=== PATIENT | male | born 1990 | race African-American/Black ===

== ENCOUNTER 2018-03-08 11:55 | Emergency (ER) | payer OTHER ==
[2018-03-08 14:20] LABS: Absolute Lymphocytes (CBC) 2.2 K/uL (0.7-4.9); Absolute Monocytes 0.4 K/uL (0.1-1.3); Absolute Neutrophil 4.9 K/uL (1.8-8.0); Basophils % 0.3 % (0-1.3); Eosinophils % 1.5 % (0-4.4); Hematocrit 48.3 % (39.6-49.0); Lymphocytes % 28.8 % (15.3-44.8); MCH 27.8 pg (27.0-35.0); MCV 85.1 fL (80-100); MPV 9.1 fL (7.6-11.3); RBC Red Blood Cell Count 5.67 M/uL (4.33-5.43)
[2018-03-08 14:32] LABS: Bicarbonate 26 mEq/L (21-31); Glucose Level 83 mg/dL (65-120); Potassium 4.5 mEq/L (3.6-5.0); Sodium Level 139 mEq/L (135-145)
[2018-03-08 14:33] LABS: BUN Blood Urea Nitrogen 14 mg/dL (6-20)
--- NOTE | 2018-03-08 14:58 | RAD REPORT ---
EXAM DESCRIPTION: RAD - Chest Single View - 03/08/2018 2:48 pm CLINICAL HISTORY: Chest pain, hypertension. COMPARISON: None. FINDINGS: Portable technique limits examination quality. The lungs are grossly clear. The heart is normal in size. No displaced fractures. IMPRESSION: No acute intrathoracic process suspected.
--- NOTE | 2018-03-08 15:47 | ER ---
Nurse's Notes [facility] Emergency Department Name: Reinier Flores Age: 27 yrs Sex: Male : 1990 Arrival Date: 03/08/2018 Time: 11:58 Bed 19 Private MD: Diagnosis: Chest pain, unspecified;Encounter for issue of repeat prescription Presentation: 03/08 12:31 Presenting complaint: Patient states: Needs lisinopril refill, does not remember the hb dose. Denies pain/SOB/nausea. Transition of care: patient was not received from another setting of care. Onset of symptoms was March 08, 2018. Care prior to arrival: None. 12:31 Method Of Arrival: Ambulatory hb 12:31 Acuity: LEYLA 5 hb Triage Assessment: 13:18 General: Appears in no apparent distress. uncomfortable, Behavior is calm, cooperative, hj appropriate for age. Pain: Denies pain. Cardiovascular: Capillary refill < 3 seconds Patient's skin is warm and dry. Historical: - Allergies: 12:33 No Known Allergies; hb - Home Meds: 12:33 Lisinopril Oral [Active]; hb - PMHx: 12:33 Hypertension; hb - PSHx: 12:33 None; hb - Immunization history:: Adult Immunizations up to date. - Social history:: Smoking status: Patient/guardian denies using tobacco. Screenin:18 Abuse screen: Denies threats or abuse. Denies injuries from another. Nutritional hj screening: No deficits noted. Tuberculosis screening: No symptoms or risk factors identified. Fall Risk None identified. Assessment: 13:01 Reassessment: Pt told ED registration staff that he was going to drink a redbull energy ss drink to make himself pass out to come back to the ER exam room faster. 13:19 Pain: Denies pain. Pain began. hj 13:20 General: Appears in no apparent distress. uncomfortable, Behavior is calm, cooperative, hj appropriate for age. Pain: Denies pain. Neuro: Level of Consciousness is awake, alert, obeys commands, Oriented to person, place, time, situation, Appropriate for age. Cardiovascular: Capillary refill < 3 seconds Patient's skin is warm and dry. Respiratory: Airway is patent Respiratory effort is even, unlabored, Respiratory pattern is regular, symmetrical. GI: No signs and/or symptoms were reported involving the gastrointestinal system. : No signs and/or symptoms were reported regarding the genitourinary system. EENT: No signs and/or symptoms were reported regarding the EENT system. Derm: No signs and/or symptoms reported regarding the dermatologic system. Musculoskeletal: No signs and/or symptoms reported regarding the musculoskeletal system. 13:21 Pain: Pain does not radiate. hj 13:30 Reassessment: now pt complained of chest pain; provider in room with orders for cardiac hj work up;. 13:45 Reassessment: Patient and/or family updated on plan of care and expected duration. Pain hj level reassessed. Patient is alert, oriented x 3, equal unlabored respirations, skin warm/dry/pink. pt aggreed of work up;. 14:14 Reassessment: complaints of 4/10 chest pain;. hj Vital Signs: 12:34 BP 152 / 95; Pulse 88; Resp 16; Temp 97.8; Pulse Ox 100% on R/A; Weight 90.72 kg; hb Height 5 ft. 8 in. (172.72 cm); Pain 0/10; 13:21 BP 145 / 97; Pulse 84; Resp 18; Pulse Ox 98% on R/A; hj 16:20 BP 140 / 96; Pulse 85; Resp 18; Pulse Ox 100% on R/A; hj 12:34 Body Mass Index 30.41 (90.72 kg, 172.72 cm) hb ED Course: 11:58 Patient arrived in ED. sb2 12:33 Triage completed. hb 12:33 Arm band placed on right wrist. hb 13:17 Foreign Campbell RN is Primary Nurse. hj 13:17 Justino Hill NP is PHCP. pm1 13:17 Gil Watson MD is Attending Physician. pm1 13:19 Patient has correct armband on for positive identification. Bed in low position. Call hj light in reach. Side rails up X 1. professor of economics on. Pulse ox on. NIBP on. 13:19 Patient maintains SpO2 saturation greater than 95% on room air. hj 14:14 Initial lab(s) drawn, by me, sent to lab. Inserted saline lock: 20 gauge antecubital hj area, using aseptic technique. Blood collected. 14:27 EKG done, by ED staff, reviewed by Justino Marinas DIFFUSION FURNACE OPERATOR. jb1 14:48 XRAY Chest (1 view) In Process Unspecified. EDMS 16:20 No provider procedures requiring assistance completed. IV discontinued, intact, hj bleeding controlled, No redness/swelling at site. Pressure dressing applied. Administered Medications: No medications were administered Outcome: 15:47 Discharge ordered by MD. pm1 16:20 Discharged to home ambulatory. hj 16:20 Condition: stable 16:20 Discharge instructions given to patient, Instructed on discharge instructions, follow up and referral plans. medication usage, Demonstrated understanding of instructions, follow-up care, medications, Prescriptions given X 1. 16:21 Patient left the ED. Signatures: Dispatcher [employer] EDMS Laureano Flores jb1 Melany Brandt, MONTEZ RN Foreign Campbell RN Justino Acevedo NP DIFFUSION FURNACE OPERATOR pm1 Jennifer Ireland RN RN Bren Garcia sb2 Corrections: (The following items were deleted from the chart) 12:59 12:31 Acuity: LEYLA 4 hb hb 13:31 13:21 Pulse 84bpm; Resp 18bpm; Pulse Ox 98% RA; con andujar
--- NOTE | 2018-03-08 15:47 | EDPHYS ---
Physician Documentation [facility] Name: Reinier Flores Age: 27 yrs Sex: Male : 1990 Arrival Date: 03/08/2018 Time: 11:58 Bed 19 Private MD: ED Physician Gil Watson HPI: 03/08 14:32 This 27 yrs old Black Male presents to ER via Ambulatory with complaints of chest pain pm1 and medication refill. 14:32 The patient or guardian reports chest pain that is located primarily in the substernal pm1 area. The pain does not radiate. Associated signs and symptoms: Pertinent positives: shortness of breath, Pertinent negatives: abdominal pain, cough, dizziness, headache, nausea, vomiting. The chest pain is described as sharp. Duration: The patient or guardian reports multiple episodes. Modifying factors:. The patient has experienced similar episodes in the past, multiple times. The patient has not recently seen a physician, out of town. Patient from [place] and presenting to the ER for refill of his blood pressure medications. Patient does not take his blood pressure medications daily as directed. He takes his blood pressure medications PRN chest pain. When he has this substernal chest pain, he takes lisinopril, smokes a cigarette and then his chest pain resolves for the day. Patient does not know the dosage of lisinopril that he is prescribed. Historical: - Allergies: 12:33 No Known Allergies; hb - Home Meds: 12:33 Lisinopril Oral [Active]; hb - PMHx: 12:33 Hypertension; hb - PSHx: 12:33 None; hb - Immunization history:: Adult Immunizations up to date. - Social history:: Smoking status: Patient/guardian denies using tobacco. ROS: 14:36 Constitutional: Negative for fever, chills, and weight loss, Eyes: Negative for injury, pm1 pain, redness, and discharge, ENT: Negative for injury, pain, and discharge, Neck: Negative for injury, pain, and swelling. 14:36 Back: Negative for injury and pain, MS/Extremity: Negative for injury and deformity, Skin: Negative for injury, rash, and discoloration, Neuro: Negative for headache, weakness, numbness, tingling, and seizure. 14:36 Cardiovascular: Positive for chest pain, Negative for edema, orthopnea, palpitations, paroxysmal nocturnal dyspnea. 14:36 Respiratory: Positive for shortness of breath, Negative for cough, sputum production, wheezing. Exam: 14:40 Constitutional: This is a well developed, well nourished patient who is awake, alert, pm1 and in no acute distress. Head/Face: Normocephalic, atraumatic. Eyes: Pupils equal round and reactive to light, extra-ocular motions intact. Lids and lashes normal. Conjunctiva and sclera are non-icteric and not injected. Cornea within normal limits. Periorbital areas with no swelling, redness, or edema. ENT: Nares patent. No nasal discharge, no septal abnormalities noted. Tympanic membranes are normal and external auditory canals are clear. Oropharynx with no redness, swelling, or masses, exudates, or evidence of obstruction, uvula midline. Mucous membranes moist. Neck: Trachea midline, no thyromegaly or masses palpated, and no cervical lymphadenopathy. Supple, full range of motion without nuchal rigidity, or vertebral point tenderness. No Meningismus. 14:40 Cardiovascular: Regular rate and rhythm with a normal S1 and S2. No gallops, murmurs, or rubs. Normal PMI, no JVD. No pulse deficits. Respiratory: Lungs have equal breath sounds bilaterally, clear to auscultation and percussion. No rales, rhonchi or wheezes noted. No increased work of breathing, no retractions or nasal flaring. Abdomen/GI: Soft, non-tender, with normal bowel sounds. No distension or tympany. No guarding or rebound. No evidence of tenderness throughout. Back: No spinal tenderness. No costovertebral tenderness. Full range of motion. Skin: Warm, dry with normal turgor. Normal color with no rashes, no lesions, and no evidence of cellulitis. MS/ Extremity: Pulses equal, no cyanosis. Neurovascular intact. Full, normal range of motion. 14:40 Chest/axilla: Inspection: normal, Palpation: tenderness, of the mid-sternal area, that totally reproduces the patient's complaints. 14:40 Neuro: Orientation: is normal, Motor: is normal, moves all fours, Sensation: is normal, no obvious gross deficits, Gait: is steady, at a normal pace, without difficulty. Vital Signs: 12:34 BP 152 / 95; Pulse 88; Resp 16; Temp 97.8; Pulse Ox 100% on R/A; Weight 90.72 kg; hb Height 5 ft. 8 in. (172.72 cm); Pain 0/10; 13:21 BP 145 / 97; Pulse 84; Resp 18; Pulse Ox 98% on R/A; hj 16:20 BP 140 / 96; Pulse 85; Resp 18; Pulse Ox 100% on R/A; hj 12:34 Body Mass Index 30.41 (90.72 kg, 172.72 cm) hb MDM: 13:17 Patient medically screened. pm1 15:35 Data reviewed: vital signs. Data interpreted: Pulse oximetry: on room air is 98 %. pm1 Interpretation: normal. 15:46 Counseling: I had a detailed discussion with the patient and/or guardian regarding: the pm1 historical points, exam findings, and any diagnostic results supporting the discharge/admit diagnosis, lab results, radiology results, the need for outpatient follow up, to return to the emergency department if symptoms worsen or persist or if there are any questions or concerns that arise at home. 03/08 13:56 Order name: Basic Metabolic Panel; Complete Time: 14:48 pm1 03/08 13:56 Order name: CBC with Diff; Complete Time: 14:48 pm03/08 13:56 Order name: Troponin (emerg Dept Use Only); Complete Time: 14:48 pm03/08 13:56 Order name: XRAY Chest (1 view); Complete Time: 15:18 pm03/08 13:56 Order name: EKG; Complete Time: 13:57 pm03/08 13:56 Order name: Cardiac monitoring; Complete Time: 13:58 pm03/08 13:56 Order name: EKG - Nurse/Tech; Complete Time: 14:28 pm03/08 13:56 Order name: IV Saline Lock; Complete Time: 14:10 pm03/08 13:56 Order name: Labs collected and sent; Complete Time: 14:11 pm03/08 13:56 Order name: O2 Per Protocol; Complete Time: 13:58 pm03/08 13:56 Order name: O2 Sat Monitoring; Complete Time: 13:58 pm03/08 13:56 Order name: Urine Dipstick-Ancillary (obtain specimen); Complete Time: 15:14 pm1 Administered Medications: No medications were administered Disposition: 18:40 Co-signature as Attending Physician, Gil Watson MD. rn Disposition: 03/08/18 15:47 Discharged to Home. Impression: Chest pain, unspecified, Encounter for issue of repeat prescription. - Condition is Stable. - Discharge Instructions: Nonspecific Chest Pain, Medicine Refill at the Emergency Department. - Prescriptions for Lisinopril 20 mg Oral Tablet - take 1 tablet by ORAL route once daily; 20 tablet. - Work release form, Medication Reconciliation Form, Thank You Letter form. - Follow up: Emergency Department; When: As needed; Reason: Worsening of condition. Follow up: Private Physician; When: 2 - 3 days; Reason: Recheck today's complaints, Continuance of care, Re-evaluation by your physician. - Problem is new. - Symptoms have improved. Signatures: Dispatcher [employer] EDMS Gil Watson MD MD rn Joaquin, Henry, RN RN hj Marinas, Patrick, MARILYN EMERGENCY TECHNICIAN pm1 Jennifer Ireland RN RN
--- NOTE | 2018-03-08 21:48 | EKG ---
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
== END 2018-03-08 16:21 | disposition home or self-care (01) ==
LOC: ER 11:55
DX: R07.9 Chest pain, unspecified (principal); Z76.0 Encounter for issue of repeat prescription; I10 Essential (primary) hypertension
CPT/HCPCS: 36415; 71045; 80048; 84484; 85025; 93005; 99285